=== PATIENT | female | born 1990 | race African-American/Black ===

== ENCOUNTER → 2016-05-10 | Outpatient (CLI) | payer BC ==
[2016-05-10 19:03] LABS: ABSOLUTE BASOPHILS # (AUTO) 0.1 10^3/uL (0.0-0.2); ABSOLUTE LYMPHOCYTES (AUTO) 2.7 10^3/uL (0.5-4.7); ABSOLUTE MONOCYTES (AUTO) 0.4 10^3/uL (0.1-1.4); ABSOLUTE NEUT (AUTO) 2.7 10^3/uL (1.7-8.2); BASOPHILS % (AUTO) 0.9 % (0-2); EOSINOPHILS % (AUTO) 0.8 % (0-6); HEMATOCRIT 31.1 % (36.0-47.0); HEMOGLOBIN 9.3 g/dL (12.0-15.5); HGB HCT DIFFERENCE -3.2; LYMPHOCYTES % (AUTO) 45.4 % (13-45); MEAN CORPUSCULAR HEMOGLOBIN 19.6 pg (27.0-33.4); MEAN CORPUSCULAR VOLUME 65 fl (80-97); MONOCYTES % (AUTO) 7.2 % (3-13); RED BLOOD COUNT 4.75 10^6/uL (3.72-5.28); RED CELL DISTRIBUTION WIDTH 18.8 % (11.5-14.0); SEGMENTED NEUTROPHILS % (AUTO) 45.7 % (42-78)
== END ==
LOC: OD 16:44
PROVIDERS: ATTEND Obstetrics & Gynecology
DX: D64.9 Anemia, unspecified (principal); N92.0 Excessive and frequent menstruation with regular cycle
CPT/HCPCS: 36415; 85025

== ENCOUNTER 2017-07-11 06:58 | Day surgery (SDC) | payer BC ==
[2017-07-01 08:59] LABS: HEMATOCRIT 32.7 % (36.0-47.0); MEAN CORPUSCULAR HEMOGLOBIN 20.9 pg (27.0-33.4); MEAN CORPUSCULAR HGB CONC 30.5 g/dL (32.0-36.0); MEAN CORPUSCULAR VOLUME 68 fl (80-97); PLATELET COUNT 396 10^3/uL (150-450); RED BLOOD COUNT 4.79 10^6/uL (3.72-5.28); RED CELL DISTRIBUTION WIDTH 18.5 % (11.5-14.0); WHITE BLOOD COUNT 5.2 10^3/uL (4.0-10.5)
[2017-07-01 09:06] LABS: APPEARANCE,URINE CLOUDY; BILIRUBIN,URINE NEGATIVE (NEGATIVE); COLOR,URINE YELLOW; GLUCOSE, URINE NEGATIVE (NEGATIVE); KETONES,URINE NEGATIVE (NEGATIVE); LEUKOCYTE ESTERASE,URINE NEGATIVE (NEGATIVE); NITRITE,URINE NEGATIVE (NEGATIVE); PROTEIN,URINE NEGATIVE (NEGATIVE); URINE SPECIFIC GRAVITY 1.031; UROBILINOGEN,URINE NEGATIVE mg/dL (<2.0)
[2017-07-01 09:21] LABS: ALANINE AMINOTRANSFERASE 26 U/L (9-52); ALBUMIN 4.1 g/dL (3.5-5.0); ALKALINE PHOSPHATASE 77 U/L (38-126); ANION GAP 8 (5-19); ASPARTATE AMINO TRANSFERASE 17 U/L (14-36); BILIRUBIN,DIRECT 0.3 mg/dL (0.0-0.4); BILIRUBIN,TOTAL 0.3 mg/dL (0.2-1.3); BLOOD UREA NITROGEN 6 mg/dL (7-20); CALCIUM 9.7 mg/dL (8.4-10.2); CARBON DIOXIDE 26 mmol/L (22-30); CHLORIDE 106 mmol/L (98-107); GLUCOSE 99 mg/dL (75-110); SODIUM 140.1 mmol/L (137-145)
[2017-07-01 09:24] LABS: POTASSIUM 4.2 mmol/L (3.6-5.0)
[~2017-07-11 06:58] MED LIST: BUPIVACAINE HCL 0.25 % INJ/PF (2.5 MG/1 ML) 30 ML VIAL ONE; LACTATED RINGERS 1000 ML IV PRN; LIDOCAINE 0.5% INJ-PF (5 MG/ML) 50 ML SDV SUBCUT PRN
[2017-07-11] MEDS ORDERED: ACETAMINOPHEN 100 ML IV ONE (08:43)
[2017-07-11] MEDS ORDERED: FENTANYL CITRATE INJ/PF 100 MCG/2 ML AMPUL ONE (08:44)
[2017-07-11] MEDS ORDERED: DEXAMETHASONE SOD PHOSPHATE INJ 4 MG/1 ML VIAL ONE ×2 (08:44→11:34)
[2017-07-11] MEDS ORDERED: PROPOFOL INJ 200 MG/20 ML VIAL IV ONE (08:44)
[2017-07-11] MEDS ORDERED: ONDANSETRON HCL INJ/PF 4 MG/2 ML SDV ONE ×2 (08:44→10:11)
[2017-07-11] MEDS ORDERED: MIDAZOLAM 2 MG/2 ML INJ ONE (08:44)
[2017-07-11] MEDS ORDERED: ONDANSETRON HCL INJ/PF 4 MG/2 ML SDV IV PRN (09:19)
[2017-07-11] MEDS ORDERED: FENTANYL CITRATE INJ/PF 100 MCG/2 ML AMPUL IV PRN ×3 (09:19)
[2017-07-11] MEDS ORDERED: MEPERIDINE HCL/PF INJ 25 MG/1 ML DISP.SYRIN IV PRN (09:19)
[2017-07-11] MEDS ORDERED: DIPHENHYDRAMINE HCL 50 MG/ML VIAL IV PRN (09:19)
[2017-07-11] MEDS ORDERED: PROMETHAZINE HCL INJ 25 MG/1 ML VIAL IV PRN ×2 (09:19→10:52)
[2017-07-11] MEDS ORDERED: GENTAMICIN SULFATE INJ 80 MG/2 ML VIAL ONE (10:42)
[2017-07-11] MEDS ORDERED: OXYCODONE-ACETAMINOPHEN 5-325 MG TABLET PO PRN ×2 (10:49)
--- NOTE | 2017-07-11 11:09 | OPERATIVE REPORT E ---
Operative Report NAME: NATAN PALOMINO : 1990 AGE: 26Y DATE OF SURGERY: 07/11/2017 ROOM: PREOPERATIVE DIAGNOSIS: Pelvic pain. POSTOPERATIVE DIAGNOSES: 1. Pelvic pain. 2. Extensive adhesions binding the uterus, ovaries, and tubes into the cul-de-sac behind the uterus, also involving the sigmoid colon. 3. Suspected endometriosis versus PID. OPERATION: 1. D and C. 2. Laparoscopy. SURGEON: FRANSICO HIGGINS M.D. ANESTHESIA: General. ESTIMATED BLOOD LOSS: 25 mL. PERTINENT HISTORY AND OPERATIVE FINDINGS: This is a 26-year-old multiparous female who had been having problems with periods being heavy and irregular as well as increasing pelvic pain. She ultimately elected to proceed with D and C and laparoscopy. At time of surgery the uterus was slightly enlarged and boggy. There could be some small fibroids. It sounded to 7 cm. The uterus was bound down into the cul-de-sac as were the ovaries and the tubes. There was extensive scar tissue. The bowel was also adhesed down into this area. The rest of the bowel appeared to be normal. The liver and gallbladder appeared to be normal. OPERATIVE PROCEDURE: The patient was brought into the OR, placed on the table in a supine position, and inducted under general anesthesia. Following this, she was repositioned in a dorsal lithotomy position and prepped and draped in a sterile fashion. Bladder was drained of about 75 mL of clear yellow urine. Pelvic under anesthesia was done. The vulva appeared to be normal. The vagina appeared to be normal. The cervix was stenotic but otherwise appeared to be normal. Uterus was slightly increased in size and irregular consistent with fibroids. The adnexa palpated for fullness. The weighted speculum was inserted. The cervix was grasped on its anterior lip with 2 single toothed tenaculums. It was dilated with Mckenna dilators. It was sounded to 7 cm. We did use a small *------* curette. Very minimal if any tissue was able to be removed. The tenaculum probe was inserted and the other equipment was removed. Attention was turned toward the abdominal wall. A Veress needle was introduced umbilically, carried through the various layers until the abdominal cavity was entered. The Veress needle had a drop of saline placed on it. The abdomen was picked up, however, the saline did not egress. The Veress was removed. This was done 2 more times. Unfortunately the tactile sensation was adequate to assume that it was in the peritoneum and even though the drop did not egress into the peritoneal cavity, the CO2 was hooked. Opening pressures were 6. She was initially started on low pressure and switched to high pressure. The pressure remained at 6. Ultimately she went on to have 3 L of CO2 injected to establish a pneumoperitoneum. The Veress needle was removed. A small incision was made infraumbilically. Through this incision a trocar and sleeve were inserted. The trocar was removed and through the sleeve a laparoscope was inserted. A second incision was then made suprapubically. Through this incision a trocar and sleeve were inserted. The trocar was removed and a probe was inserted. It became apparent that there was extensive adhesions in the cul-de-sac area with the ovaries and tubes both being bound down into this area. There was also sigmoid colon bound down. These were dense scarred adhesions consistent with either previous extensive PID or endometriosis. At this time, it is favored endometriosis. We tried to dissect into this area. It became quickly apparent that this was extensive scar tissue and dense adhesions and it was felt better not to continue to probe under these circumstances. The area was lavaged out with saline copious amounts a number of times. The excess saline was then sucked up. We did take pictures of the pelvis and adnexa. We also took pictures of the liver and gallbladder. This terminated procedure. The lower sleeve was removed. There was no evidence of active bleeding. The CO2 was allowed to escape. The upper sleeve was removed. Patient then had 4 mL of 0.25% Marcaine injected into both incisions. The fascia was closed with interrupted 0 Vicryl as was the fascia and the suprapubic incision. Having accomplished this, the subcuticular 4-0 Prolene was used to close the subumbilical incision. The suprapubic incision was closed with interrupted 4-0 Prolene. Patient tolerated the procedure well, had a negligible blood loss, and she left the operating room in satisfactory condition. DICTATING PHYSICIAN: FRANSICO HIGGINS M.D. [id number] Y#: [id number] ID: [id number] JOB#: [id number] ACCT: [id number] cc:FRANSICO HIGGINS M.D. >
[2017-07-11] MEDS ORDERED: PROMETHAZINE HCL INJ 25 MG/1 ML VIAL IV ONE (11:45)
[2017-07-11] MEDS ORDERED: DEXAMETHASONE SOD PHOS INJ 10 MG/1 ML VIAL IV ONE (11:45)
[2017-07-11 13:12] VITALS: BP 107/66
[2017-07-11] MEDS ORDERED: SUCCINYLCHOLINE CHLORIDE INJ 200 MG/10 ML VIAL ONE (14:07)
[2017-07-11] MEDS ORDERED: ROCURONIUM BROMIDE INJ 50 MG/5 ML VIAL IV ONE (14:07)
== END 2017-07-11 13:05 | disposition home or self-care (01) ==
LOC: OROUT 06:58
PROVIDERS: ATTEND Obstetrics & Gynecology
PROC: 0WJJ4ZZ Inspection of Pelvic Cavity, Percutaneous Endoscopic Approach (ICD-10-PCS; 2017-07-11)
PROC: 0UDB7ZX Extraction of Endometrium, Via Natural or Artificial Opening, Diagnostic (ICD-10-PCS; principal; 2017-07-11 09:00)
DX: N88.2 Stricture and stenosis of cervix uteri (principal); N85.2 Hypertrophy of uterus; R10.2 Pelvic and perineal pain; N93.8 Other specified abnormal uterine and vaginal bleeding; D64.9 Anemia, unspecified; N73.6 Female pelvic peritoneal adhesions (postinfective); Z88.2 Allergy status to sulfonamides; Z79.899 Other long term (current) drug therapy
CPT/HCPCS: 58120; 49320; 36415; 85027; 81025; 80053; 81001; 88305 ×2; J2250; J3490; J1100; J3010; J1580; J2550; J0330; J2405; J2704; J0131; 790

== ENCOUNTER 2018-02-20 04:59 | Emergency (ER) | payer BC ==
--- NOTE | 2018-02-20 05:46 | ER Document Report ---
HPI - HPI Patient complains to provider of: Vaginal discharge Pain Level: 4 Context: Patient is a 27-year-old female presenting to the emergency department complaining of vaginal discharge and itching for the last 2 days. Patient denies any malodor to the discharge. Patient states she has a history of endometriosis and intermittent he does have vaginal pain is currently not having pain right now. Patient denies any abdominal pain or back pain. Patient also denies any dysuria or fevers. Past medical history: Endometriosis Medications: None Allergies: None - REPRODUCTIVE Reproductive: REPORTS: Abnormal bleeding / discharge - discharge. DENIES: : Past Medical History - General Information source: Patient - Social History Smoking Status: Unknown if Ever Smoked Lives with: Family Family History: Reviewed & Not Pertinent Patient has suicidal ideation: No Patient has homicidal ideation: No - Past Medical History Cardiac Medical History: Denies: Hx Coronary Artery Disease, Hx Heart Attack, Hx Hypertension Pulmonary Medical History: Denies: Hx Asthma, Hx Bronchitis, Hx COPD, Hx Pneumonia Neurological Medical History: Denies: Hx Cerebrovascular Accident, Hx Seizures Renal/ Medical History: Denies: Hx Peritoneal Dialysis Musculoskeletal Medical History: Denies Hx Arthritis Past Surgical History: Reports: Hx Section - Immunizations Hx Diphtheria, Pertussis, Tetanus Vaccination: Yes Vertical Provider Document - CONSTITUTIONAL Agree With Documented VS: Yes Notes: GENERAL: Alert, interacts well. No acute distress. HEAD: Normocephalic, atraumatic. EYES: Pupils equal, round, and reactive to light. Extraocular movements intact. ENT: Oral mucosa moist, tongue midline. NECK: Full range of motion. Supple. Trachea midline. LUNGS: Clear to auscultation bilaterally, no wheezes, rales, or rhonchi. No respiratory distress. HEART: Regular rate and rhythm. No murmur ABDOMEN: Obese soft, non-tender. Non-distended. Bowel sounds present in all 4 quadrants. EXTREMITIES: Moves all 4 extremities spontaneously. No edema, normal radial and dorsalis pedis pulses bilaterally. No cyanosis. BACK: no cervical, thoracic, lumbar midline tenderness. No saddle anesthesia, normal distal neurovascular exam. No CVA tenderness bilaterally NEUROLOGICAL: Alert and oriented x3. Normal speech. cranial nerves II through XII grossly intact PSYCH: Normal affect, normal mood. SKIN: Warm, dry, normal turgor. No rashes or lesions noted. PELVIC: No external genitalia lesions noted, white thick discharge seen in the cul-de-sac, no cervical motion tenderness, no adnexal tenderness. - INFECTION CONTROL TRAVEL OUTSIDE OF THE [place] IN LAST 30 DAYS: No Course - Re-evaluation Re-evalutation: 02/20/18 06:22 Patient's wet mount comes back with bacterial vaginosis. Will treat for same. Discussed gonorrhea and Chlamydia prophylaxis in the room with patient she wishes for those treatments in the emergency room. Patient's chart says she is allergic to cefaclor. Patient states she thinks that was when she was a child and she says her mom told her she got a rash. Patient states she has been on Keflex as an adult with no allergic symptoms. Discussed close follow-up with primary care provider and CUSTOMER SERVICER. Return precautions discussed - Vital Signs Vital signs: Temp Pulse Resp BP Pulse Ox 98 F 68 18 103/74 99 02/20/18 05:04 02/20/18 05:04 02/20/18 05:04 02/20/18 05:04 02/20/18 05:04 Discharge - Discharge Clinical Impression: Bacterial vaginosis, Need for prophylaxis against sexually transmitted diseases Condition: Stable Disposition: HOME, SELF-CARE Instructions: Vaginosis, Bacterial ([facility]) Additional Instructions: As we discussed you have been seen and treated in the emergency department for bacterial vaginosis. You have also been treated for gonorrhea and chlamydia because those tests will not come back within a timely manner. Please call medical records to get the results of this test. Please make an appointment with your primary care provider in the next 24-48 hours. Please return to the emergency room for any other concerning symptoms. Prescriptions: Metronidazole [Flagyl 500 mg Tablet] 500 mg PO BID #14 tablet Referrals: FRANSICO HIGGINS MD [Primary Care Provider] - Follow up as needed
[2018-02-20 05:51] LABS: BACTERIA (WET MOUNT) 3+ BACTERIA SEEN; EPITHELIALS (WET MOUNT) 4+ EPITHELIALS SEEN; RBCS (WET MOUNT) NO RBCS SEEN; T.VAGINALIS (WET MOUNT) NO TRICHOMONAS SEEN; WBCS (WET MOUNT) NO WBCS SEEN; YEAST (WET MOUNT) NO YEAST SEEN
[2018-02-20 05:52] LABS: APPEARANCE,URINE SLIGHTLY-CLOUDY; BILIRUBIN,URINE NEGATIVE (NEGATIVE); COLOR,URINE YELLOW; GLUCOSE, URINE NEGATIVE (NEGATIVE); KETONES,URINE NEGATIVE (NEGATIVE); LEUKOCYTE ESTERASE,URINE NEGATIVE (NEGATIVE); NITRITE,URINE NEGATIVE (NEGATIVE); PROTEIN,URINE NEGATIVE (NEGATIVE); URINE SPECIFIC GRAVITY 1.016; UROBILINOGEN,URINE NEGATIVE mg/dL (<2.0)
[2018-02-20] MEDS ORDERED: AZITHROMYCIN 1 GM SUSP PACKET PO ONE (06:13)
[2018-02-20] MEDS ORDERED: CEFTRIAXONE INJ 250 MG VIAL IM ONE (06:14)
[2018-02-20] MEDS ORDERED: LIDOCAINE 1% INJ-PF (10 MG/ML) 30 ML SDV INJ ONE (06:26)
[2018-02-20 07:08] VITALS: BP 105/70
[2018-02-20 07:14] LABS: CHLAM PCR NOT DETECTED (NOT DETECT); GON PCR NOT DETECTED (NOT DETECT)
== END 2018-02-20 07:06 | disposition home or self-care (01) ==
LOC: ER 04:59
DX: N76.0 Acute vaginitis (principal); B96.89 Other specified bacterial agents as the cause of diseases classified elsewhere; Z20.2 Contact with and (suspected) exposure to infections with a predominantly sexual mode of transmission
CPT/HCPCS: 99283; 96372; 87210; 81025; 81001; 87491; 87591; J3490; Q0144; J0696

== ENCOUNTER 2018-05-06 12:29 | Emergency (ER) | payer BC ==
[2018-05-06] MEDS ORDERED: ONDANSETRON 4 MG TAB.RAPDIS PO ONE (13:54)
--- NOTE | 2018-05-06 13:56 | ER Document Report ---
ED Medical Screen (RME) - General Chief Complaint: Dizziness Stated Complaint: DIZZINESS Time Seen by Provider: 05/06/18 13:51 Primary Care Provider: FRANSICO HIGGINS MD [Primary Care Provider] - Follow up as needed Mode of Arrival: Wheelchair Information source: Patient Notes: Patient presents emergency department with complaints of dizziness and nausea. Denies trauma. Denies fever vomiting diarrhea. Patient reports she woke up this morning did not eat breakfast but usually does not eat breakfast and started feeling dizzy and sick. Reports history of anemia. Patient reports she is on her menses and bleeding heavily. No other family members ill. Patient works in a [employer]. I have greeted and performed a rapid initial assessment of this patient. A comprehensive ED assessment and evaluation of the patient, analysis of test results and completion of the medical decision making process will be conducted by additional ED providers. Dictation of this chart was performed using voice recognition software; therefore, there may be some unintended grammatical errors. TRAVEL OUTSIDE OF THE [place] IN LAST 30 DAYS: No - Related Data Allergies/Adverse Reactions: cefaclor [From Ceclor] Allergy (Verified 05/06/18 12:32) Rash, Swelling Sulfa (Sulfonamide Antibiotics) Allergy (Verified 05/06/18 12:32) rash, swelling Past Medical History - Social History Frequency of alcohol use: None Drug Abuse: None - Past Medical History Cardiac Medical History: Denies: Hx Coronary Artery Disease, Hx Heart Attack, Hx Hypertension Pulmonary Medical History: Denies: Hx Asthma, Hx Bronchitis, Hx COPD, Hx Pneumonia Neurological Medical History: Denies: Hx Cerebrovascular Accident, Hx Seizures Renal/ Medical History: Denies: Hx Peritoneal Dialysis Musculoskeltal Medical History: Denies Hx Arthritis Past Surgical History: Reports: Hx Section - Immunizations Hx Diphtheria, Pertussis, Tetanus Vaccination: Yes History of Influenza Vaccine for 01/2017 - 06/2017 Season: No Physical Exam - Vital signs Vitals: Temp Pulse Resp BP Pulse Ox 98.3 F 80 20 101/69 99 05/06/18 13:19 05/06/18 13:19 05/06/18 13:19 05/06/18 13:05/06/18 13:19 Course - Vital Signs Vital signs: Temp Pulse Resp BP Pulse Ox 98.3 F 80 20 101/69 99 05/06/18 13:19 05/06/18 13:19 05/06/18 13:19 05/06/18 13:19 05/06/18 13:19 Doctor's Discharge - Discharge Referrals: FRANSICO HIGGINS MD [Primary Care Provider] - Follow up as needed
[2018-05-06 15:31] LABS: ABSOLUTE LYMPHOCYTES (AUTO) 1.2 10^3/uL (0.5-4.7); ABSOLUTE MONOCYTES (AUTO) 0.3 10^3/uL (0.1-1.4); ABSOLUTE NEUT (AUTO) 4.2 10^3/uL (1.7-8.2); BASOPHILS % (AUTO) 0.6 % (0-2); EOSINOPHILS % (AUTO) 0.5 % (0-6); HEMATOCRIT 33.8 % (36.0-47.0); HEMOGLOBIN 10.7 g/dL (12.0-15.5); LYMPHOCYTES % (AUTO) 21.2 % (13-45); MEAN CORPUSCULAR HEMOGLOBIN 22.9 pg (27.0-33.4); MEAN CORPUSCULAR HGB CONC 31.7 g/dL (32.0-36.0); MEAN CORPUSCULAR VOLUME 72 fl (80-97); MONOCYTES % (AUTO) 5.6 % (3-13); PLATELET COUNT 383 10^3/uL (150-450); RED BLOOD COUNT 4.68 10^6/uL (3.72-5.28); RED CELL DISTRIBUTION WIDTH 16.3 % (11.5-14.0); SEGMENTED NEUTROPHILS % (AUTO) 72.1 % (42-78); TOTAL CELLS COUNTED % (AUTO) 100 %; WHITE BLOOD COUNT 5.8 10^3/uL (4.0-10.5)
[2018-05-06 16:07] LABS: ALANINE AMINOTRANSFERASE 21 U/L (9-52); ALBUMIN 4.4 g/dL (3.5-5.0); ALKALINE PHOSPHATASE 85 U/L (38-126); ANION GAP 8 (5-19); ASPARTATE AMINO TRANSFERASE 17 U/L (14-36); BILIRUBIN,DIRECT 0.2 mg/dL (0.0-0.4); BILIRUBIN,TOTAL 0.5 mg/dL (0.2-1.3); BLOOD UREA NITROGEN 6 mg/dL (7-20); CALCIUM 9.7 mg/dL (8.4-10.2); CARBON DIOXIDE 27 mmol/L (22-30); CHLORIDE 105 mmol/L (98-107); GLUCOSE 97 mg/dL (75-110); POTASSIUM 4.1 mmol/L (3.6-5.0); SODIUM 139.5 mmol/L (137-145); TOTAL PROTEIN 7.2 g/dL (6.3-8.2)
--- NOTE | 2018-05-06 17:52 | ER Document Report ---
ED General - General Chief Complaint: Dizziness Stated Complaint: DIZZINESS Time Seen by Provider: 05/06/18 13:51 Primary Care Provider: FRANSICO HIGGINS MD [Primary Care Provider] - Follow up as needed Mode of Arrival: Wheelchair Information source: Patient Notes: Patient presents emergency department complaints of lightheadedness and nausea. Patient states that it started at about 11 PM while she was at work. She denies any vomiting, diarrhea, constipation, fever, chills, abdominal pain, chest pain, shortness of breath. Patient states that she did not eat breakfast this morning and thinks that this may be a contributing factor. She denies a history of any sick contacts. Patient states that she does have a history of anemia and she is currently on her menstrual cycle and bleeding had heavily. TRAVEL OUTSIDE OF THE [place] IN LAST 30 DAYS: No - HPI Onset: This morning Onset/Duration: Sudden Quality of pain: No pain Severity: None Pain Level: Denies Associated symptoms: Nausea Exacerbated by: Denies Relieved by: Denies Similar symptoms previously: No Recently seen / treated by doctor: No - Related Data Allergies/Adverse Reactions: cefaclor [From Ceclor] Allergy (Verified 05/06/18 12:32) Rash, Swelling Sulfa (Sulfonamide Antibiotics) Allergy (Verified 05/06/18 12:32) rash, swelling Past Medical History - General Information source: Patient - Social History Smoking Status: Never Smoker Frequency of alcohol use: None Drug Abuse: None Family History: Reviewed & Not Pertinent Patient has suicidal ideation: No Patient has homicidal ideation: No - Past Medical History Cardiac Medical History: Denies: Hx Coronary Artery Disease, Hx Heart Attack, Hx Hypertension Pulmonary Medical History: Denies: Hx Asthma, Hx Bronchitis, Hx COPD, Hx Pneumonia Neurological Medical History: Denies: Hx Cerebrovascular Accident, Hx Seizures Renal/ Medical History: Denies: Hx Peritoneal Dialysis Musculoskeletal Medical History: Denies Hx Arthritis Past Surgical History: Reports: Hx Section - Immunizations Hx Diphtheria, Pertussis, Tetanus Vaccination: Yes Review of Systems - Review of Systems Constitutional: No symptoms reported EENT: No symptoms reported Cardiovascular: Lightheaded Respiratory: No symptoms reported Gastrointestinal: No symptoms reported Genitourinary: No symptoms reported Female Genitourinary: Vaginal bleeding Musculoskeletal: No symptoms reported Skin: No symptoms reported Hematologic/Lymphatic: No symptoms reported Neurological/Psychological: No symptoms reported -: Yes All other systems reviewed and negative Physical Exam - Vital signs Vitals: Temp Pulse Resp BP Pulse Ox 98.3 F 80 20 101/69 99 05/06/18 13:19 05/06/18 13:19 05/06/18 13:19 05/06/18 13:19 05/06/18 13:19 - Notes Notes: PHYSICAL EXAMINATION: GENERAL: Well-appearing, well-nourished and in no acute distress. HEAD: Atraumatic, normocephalic. EYES: Pupils equal round and reactive to light, extraocular movements intact, conjunctiva are normal. ENT: Nares patent, oropharynx clear without exudates. Moist mucous membranes. NECK: Normal range of motion, supple without lymphadenopathy LUNGS: Breath sounds clear to auscultation bilaterally and equal. No wheezes rales or rhonchi. HEART: Regular rate and rhythm without murmurs ABDOMEN: Soft, nontender, nondistended abdomen. No guarding, no rebound. No masses appreciated. Female : deferred Musculoskeletal: Normal range of motion, no pitting or edema. No cyanosis. NEUROLOGICAL: Cranial nerves grossly intact. Normal speech, normal gait. Nor mal sensory, motor exams PSYCH: Normal mood, normal affect. SKIN: Warm, Dry, normal turgor, no rashes or lesions noted. Course - Re-evaluation Re-evalutation: 05/06/18 17:56 Labs obtained. Hemoglobin is stable. Vital signs are stable. Was given Zofran for her nausea. On reevaluation, patient states that she is feeling much b moris. 05/06/18 18:05 EKG: Ventricular rate 66, [place] interval 152, castration 80, QTc 420, sinus rhythm. No ST segment elevation. - Vital Signs Vital signs: Temp Pulse Resp BP Pulse Ox 98.3 F 80 20 101/69 99 05/06/18 13:19 05/06/18 13:19 05/06/18 13:19 05/06/18 13:19 05/06/18 13:19 - Laboratory Result Diagrams: 05/06/18 15:15 05/06/18 15:15 Laboratory results interpreted by me: 05/06/18 05/06/18 15:15 15:15 Hgb 10.7 L Hct 33.8 L MCV 72 L MCH 22.9 L MCHC 31.7 L RDW 16.3 H BUN 6 L Discharge - Discharge Clinical Impression: Nausea, Lightheaded Condition: Good Disposition: HOME, SELF-CARE Instructions: Antinausea Medication ([facility]) Prescriptions: Ondansetron [Zofran Odt 4 mg Tablet] 1 tab PO Q4H PRN #15 tab.rapdis PRN Reason: For Nausea/Vomiting Referrals: FRANSICO HIGGINS MD [Primary Care Provider] - Follow up as needed
[2018-05-06 18:28] VITALS: BP 104/73
--- NOTE | 2018-05-06 19:39 | EKG REPORT ---
SEVERITY:- BORDERLINE ECG - SINUS RHYTHM BORDERLINE T ABNORMALITIES, DIFFUSE LEADS : Confirmed by: Analy Queen MD 06-May-2018 19:37:47
== END 2018-05-06 18:26 | disposition home or self-care (01) ==
LOC: ER 12:29
DX: R42 Dizziness and giddiness (principal); R11.0 Nausea
CPT/HCPCS: 93005; 99284; 36415; 84703; 85025; 80053; 93010; S0119

== ENCOUNTER 2018-10-30 00:11 | Emergency (ER) | payer BC ==
[2018-10-30 01:02] VITALS: BP 109/74
== END 2018-10-30 04:00 | disposition left against medical advice (07) ==
LOC: ER 00:11
DX: Z53.21 Procedure and treatment not carried out due to patient leaving prior to being seen by health care provider (principal); M54.9 Dorsalgia, unspecified